=== PATIENT | female | born 1990 | race Caucasian/White ===

== ENCOUNTER 2016-06-10 20:51 | Emergency (ER) | payer OTHER ==
[~2016-06-10] VITALS: Ht 157.5 cm; Wt 54.5 kg
[2016-06-10 21:00] VITALS: Ht 157.5 cm; Wt 54.5 kg
[2016-06-10] MEDS ORDERED: HYDROmorphONE 1 MG/ML SYG IV STA (21:35)
[2016-06-10] MEDS ORDERED: SOD CHLORIDE 0.9% 1,000 ML IV STA (21:35)
[2016-06-10] MEDS ORDERED: ONDANSETRON 4 MG INJ IV STA (21:35)
[2016-06-10 22:29] LABS: ADD SCAN DIFF NO
[2016-06-10 22:35] LABS: BASOPHILS % 0.2 % (0.0-2.0); EOSINOPHILS % 0.3 % (0.0-7.0); HEMATOCRIT 33.1 % (37.0-47.0); HEMOGLOBIN 11.3 g/dl (12.0-16.0); LYMPHOCYTES # 1.3 10^3/ul (0.8-2.9); LYMPHOCYTES % 22.5 % (15.0-51.0); MEAN CORPUSCULAR HGB CONC 34.1 g/dl (32.0-37.0); MEAN CORPUSCULAR VOLUME 93.8 fl (82.0-101.0); MEAN PLATELET VOLUME 9.8 fl (7.4-10.4); MONOCYTE # 0.4 10^3/ul (0.3-0.9); NEUTROPHIL # 4.2 10^3/ul (1.6-7.5); NEUTROPHILS % 70.7 % (39.0-77.0); PLATELET COUNT 317 10^3/UL (140-415); RED BLOOD COUNT 3.53 10^6/ul (4.20-5.40); RED CELL DISTRIBUTION WIDTH 11.9 % (11.5-14.5)
--- NOTE | 2016-06-10 23:06 | RADRPT ---
PROCEDURE: US OB. CLINICAL INDICATION: Pain and vaginal bleeding TECHNIQUE: Transabdominal and transvaginal views of the pelvis are available for review. COMPARISON: There are no similar studies submitted for comparison. FINDINGS: There is no evidence of intrauterine gestational sac. The uterus and endometrium are normal in appe arance. The right ovary measures 4.8 x 3.6 x 3.8 cm. The left ovary measures 2.8 x 2.1 x 2.6 cm. Doppler f low is noted to the bilateral ovaries. A 2.3 cm corpus luteal cyst is noted within the right ovary. There is a small to moderate amount of free fluid within the pelvis. There is a 2.7 by 2.2 x 2.6 cm right adnexal mass. No definite vascular flow or cardiac activity is identified within the mass. IMPRESSION: Right adnexal mass and small to moderate pelvic free fluid suspicious for ectopic . Doppler flow to the bilateral ovaries. RPTAT: HIKT .Sadiq Varma MD, MD Date Time Electronically viewed and signed by .Sadiq Varma MD, MD on 06/10/2016 23:05 .T/
[2016-06-10] MEDS ORDERED: HYDR-902 PO (23:29)
[2016-06-10] MEDS ORDERED: CLIN-73 PO (23:29)
[2016-06-10] MEDS ORDERED: METH-70 PO (23:29)
--- NOTE | 2016-06-10 23:35 | ERD ---
ER Documentation Chief Complaint Date/Time DATE: 06/10/16 TIME: 23:30 Chief Complaint 4-6 WKS . KNOWN ECTOPIC . VAG BLEED/SEVERE PAIN HPI This 25-year-old female who is here for evaluation for diagnosis of ectopic , right molar pain, right thoracic pain. The patient was seen at [facility] on Saturday and was evaluated for 2 weeks of vaginal bleeding. The patient was discovered to be and had an ultrasound and was sent home. She was then called back by [facility] and was told to go to another hospital because she may have an ectopic . At that point the patient went to another hospital on Saturday and had an ultrasound and an hCG level of 800. The patient was discharged home and told that she might have an ectopic but then they called her back again and told her to return the next day which she did I am methotrexate. The patient states that she did not rest and move furniture yesterday and was busy with housework is complaining of some continued pelvic pain and vaginal bleeding which is not changed, and some upper thoracic pain that she has chronically due to her scoliosis. The patient is confuses whether she has an ectopic or not and wants to be checked for this. ROS All systems reviewed and are negative except as per history of present illness. Medications Home Meds Active Scripts Clindamycin Hcl* (Clindamycin Hcl*) 300 Mg Capsule, 300 MG PO TID for 7 Days, CAP Prov:SHAYNEOS,APOSTOLOS A. DO 06/10/16 Methocarbamol* (Robaxin*) 750 Mg Tablet, 750 MG PO TID, #30 TAB Prov:SHAYNEOSMADISONSTOLOS A. DO 06/10/16 Hydrocodone/Acetaminophen ([place] 10-325 Tablet) 1 Each Tablet, 1 TAB PO Q6H Y for PAIN, #20 TAB Prov:LESNEHAOS,APOSTOLOS A. DO 06/10/16 Allergies Allergies: Coded Allergies: No Known Allergy (Unverified , 06/10/16) FmHx Family History: No coronary disease Physical Exam Vitals Vital Signs Date Time Temp Pulse Resp B/P Pulse Ox O2 Delivery O2 Flow Rate FiO2 06/10/16 21:00 98.9 133 20 165/77 97 Physical Exam Const: Well-developed, well-nourished Head: Atraumatic, normocephalic Eyes: Normal Conjunctiva, PERRLA, EOMI, normal sclera, no nystagmus ENT: Normal External Ears, Nose and Mouth, moist mucus membranes, the right posterior lower molar has some gum swelling that is mild tenderness to palpation. Neck: Full range of motion. No meningismus, no lymphadenopathy. Resp: Clear to auscultation bilaterally, no wheezing, rhonchi, rales Cardio: Regular rate and rhythm, no murmurs, S1 S2 present Abd: Soft, mild diffuse pelvic tenderness non distended. Normal bowel sounds, no guarding or rebound, no pulsitile abdominal masses or bruits Skin: No petechiae or rashes, no ecchymosis , no maculopapular rash Back: No midline or flank tenderness, right upper thoracic muscle spasm with reproducible pain to palpation Ext: No cyanosis, or edema, FROM x 4, normal inspection, neurovascularly intact x 4 Neur: Awake and alert, STR 5/5 x 4, sensation intact x 4, no focal findings, cerebellum intact Psych: Normal Mood and Affect Result Diagram: 06/10/162151 Results 24 hrs Laboratory Tests Test 06/10/16 21:52 Basophils # 0.010^3/ul Basophils % 0.2% Beta HCG, Quantitative 650.3mIU/ml Eosinophils # 0.010^3/ul Eosinophils % 0.3% Hematocrit 33.1% Hemoglobin 11.3g/dl Lymphocytes # 1.310^3/ul Lymphocytes % 22.5% Mean Corpuscular Hemoglobin 32.0pg Mean Corpuscular Hemoglobin Concent 34.1g/dl Mean Corpuscular Volume 93.8fl Mean Platelet Volume 9.8fl Monocytes # 0.410^3/ul Monocytes % 6.0% Neutrophils # 4.210^3/ul Neutrophils % 70.7% Nucleated Red Blood Cells # 0.010^3/ul Nucleated Red Blood Cells % 0.0/100WBC Platelet Count 57408^3/UL Red Blood Count 3.5310^6/ul Red Cell Distribution Width 11.9% White Blood Count 6.010^3/ul Current Medications Medications (Trade) Dose Ordered Sig/Lars Route PRN Reason Start Time Stop Time Status Last Admin Dose Admin Sodium Chloride (NS) 1,000 ml @ 1,000 mls/hr Q1H STAT IV 3/12/17 21:35 06/10/16 22:34 DC 06/10/16 21:44 Hydromorphone HCl (Dilaudid) 1 mg ONCE STAT IV 06/10/16 21:35 06/10/16 21:36 DC 06/10/16 21:44 Ondansetron HCl (Zofran Inj) 4 mg ONCE STAT IV 06/10/16 21:35 06/10/16 21:36 DC 06/10/16 21:44 Procedures/MDM PROCEDURE: US OB. CLINICAL INDICATION: Pain and vaginal bleeding TECHNIQUE: Transabdominal and transvaginal views of the pelvis are available for review. COMPARISON: There are no similar studies submitted for comparison. FINDINGS: There is no evidence of intrauterine gestational sac. The uterus and endometrium are normal in appearance. The right ovary measures 4.8 x 3.6 x 3.8 cm. The left ovary measures 2.8 x 2.1 x 2.6 cm. Doppler flow is noted to the bilateral ovaries. A 2.3 cm corpus luteal cyst is noted within the right ovary. There is a small to moderate amount of free fluid within the pelvis. There is a 2.7 by 2.2 x 2.6 cm right adnexal mass. No definite vascular flow or cardiac activity is identified within the mass. IMPRESSION: Right adnexal mass and small to moderate pelvic free fluid suspicious for ectopic . Doppler flow to the bilateral ovaries. RPTAT: HIKT .Sadiq Varma MD, Date Time Electronically viewed and signed by .Sadiq Varma MD, on 06/10/2016 23:05 .T/ CC: HARESH HERNANDEZ DO HCG is 650 which is lower than the 800 a few days ago. The ectopic is still present because she had methotrexate a few days ago and has not had time to fully work. I told her see her OB GEN in a few days for follow-up. She does have some musculoskeletal pain in the back which is chronic. We will cover her with antibiotics for her mouth. Departure Diagnosis: Primary Impression: Ectopic Location of ectopic : tubal Intrauterine status: without intrauterine Qualified Code: O00.10 - Tubal without intrauterine Additional Impressions: Back pain Back pain location: thoracic back pain Chronicity: chronic Back pain laterality: right Qualified Code: M54.6 - Chronic right-sided thoracic back pain Tooth pain Condition: Stable Patient Instructions: Ectopic , Back Pain (Acute Or Chronic), Dental Pain HARESH HERNANDEZ DO Jun 10, 2016 23:34
[2016-06-11 00:10] VITALS: BP 111/76; PULSE 89; RESP 17; TEMP 98
== END 2016-06-11 00:10 | disposition home or self-care (01) ==
LOC: E/R 20:51
DX: O00.10 Tubal pregnancy without intrauterine pregnancy (principal); O99.89 Other specified diseases and conditions complicating pregnancy, childbirth and the puerperium; M54.6 Pain in thoracic spine; K08.89 Other specified disorders of teeth and supporting structures; O99.611 Diseases of the digestive system complicating pregnancy, first trimester; R10.2 Pelvic and perineal pain; Z3A.01 Less than 8 weeks gestation of pregnancy
CPT/HCPCS: 36415; 76801; 76817; 84702; 85025; 86900; 86901; 96374; 96375; J1170; J2405; J7030; Z7502

== ENCOUNTER 2016-12-08 21:19 | Emergency (ER) | payer OTHER ==
[~2016-12-08] VITALS: Ht 157.5 cm; Wt 57.0 kg
[~2016-12-08 21:19] MED LIST: CLIN-73 PO; HYDR-902 PO; METH750T93 PO
[2016-12-08 21:23] VITALS: Ht 157.5 cm; Wt 57.0 kg
--- NOTE | 2016-12-08 22:15 | ERD ---
ER Documentation Chief Complaint Date/Time DATE: 12/08/16 TIME: 22:13 Chief Complaint Vaginal bleed and pelvic pain today Possibly LMP 10/17/16 HPI ectopic pregancy in May, LMP October 17. pt reports 2 days of spotting, and pelvic cramping, denies dysuria ROS All systems reviewed and are negative except as per history of present illness. Medications Home Meds Active Scripts Clindamycin Hcl* (Clindamycin Hcl*) 300 Mg Capsule, 300 MG PO TID for 7 Days, CAP Prov:LEKKOS,APOSTOLOS A. DO 06/10/16 Methocarbamol* (Robaxin*) 750 Mg Tablet, 750 MG PO TID, #30 TAB Prov:LEKKOS,APOSTOLOS A. DO 06/10/16 Hydrocodone/Acetaminophen ([place] 10-325 Tablet) 1 Each Tablet, 1 TAB PO Q6H Y for PAIN, #20 TAB Prov:LEKKOS,APOSTOLOS A. DO 06/10/16 Allergies Allergies: Coded Allergies: No Known Allergy (Unverified , 06/10/16) PMhx/Soc History of Surgery: No Anesthesia Reaction: No Hx Neurological Disorder: No Hx Respiratory Disorders: No Hx Cardiac Disorders: No Hx Psychiatric Problems: No Hx Miscellaneous Medical Probl: Yes (ectopic 05/2016, scoliosis) Hx Alcohol Use: Yes (occasional) Hx Substance Use: Yes (meth use in past) Hx Tobacco Use: No Smoking Status: Never smoker Physical Exam Vitals Vital Signs Date Time Temp Pulse Resp B/P Pulse Ox O2 Delivery O2 Flow Rate FiO2 12/08/16 21:23 99.2 99 20 130/90 100 Physical Exam Const: Well-nourished well-hydrated well-appearing no acute distress Head: Atraumatic Eyes: Normal Conjunctiva ENT: Normal External Ears, Nose and Mouth. Neck: Full range of motion..~ No meningismus. Resp: Clear to auscultation bilaterally Cardio: Regular rate and rhythm, no murmurs Abd: Soft, non tender, non distended. Normal bowel sounds Skin: No petechiae or rashes Back: No midline or flank tenderness Ext: No cyanosis, or edema Neur: Awake and alert Psych: Normal Mood and Affect Results 24 hrs Laboratory Tests Test 12/08/16 22:38 Bedside Urine pH (LAB) 6.0 Bedside Urine Protein (LAB) Negative Bedside Urine Glucose (UA) Negative Bedside Urine Ketones (LAB) 2+ Bedside Urine Blood 3+ Bedside Urine Nitrite (LAB) Negative Bedside Urine Leukocyte Esterase (L Negative Current Medications Medications (Trade) Dose Ordered Sig/Lars Route PRN Reason Start Time Stop Time Status Last Admin Dose Admin Acetaminophen (Tylenol Tab) 650 mg ONCE ONCE PO 12/08/16 22:30 12/08/16 22:31 DC 12/08/16 22:23 Procedures/MDM This 26-year-old female presents to emergency department for evaluation of vaginal spotting. Patient reports that she has history of ectopic in May and has had a regular menstruation since. Her last menstrual period was October 17. 1 ectopic, one miscarriage in 2 terminated pregnancies. Patient is here today to be evaluated for . Urine test negative for evidence of . Patient will be discharged home, use Tylenol and Motrin for any back pain abdominal pain, follow-up with gynecology. Patient is stable with no new complaints during ER course, clinically there is no current evidence to suggest ectopic , molar , ovarian torsion or any other emergent condition appearing to require further evaluation or hospitalization. I feel the patient is stable for discharge at this time. I have discussed results, examination findings, the treatment plan with the patient and family present prior to discharge. Indications for emergent reevaluation, side effects of medication were also discussed. All questions were answered. Patient verbalizes understanding and agrees with plan of care. Departure Diagnosis: Primary Impression: Spotting Additional Impression: Vaginal bleeding Condition: Good Referrals: CLINICAL DIETICIAN REFERRAL LIST Additional Instructions: Thank you for for coming to the [facility] for your care today. Please ask your nurse or provider if you have questions about your care today and do not leave until all your questions have been answered. Please use any medications given as directed and follow-up with your doctor (or the doctor you were referred to) in the next 2-3 days. If you do not have a primary care doctor you may [place] [facility] [place] You may also use motrin and tylenol as needed for fever and/or pain unless instructed otherwise by your provider or nurse. Indications for more urgent follow-up have been discussed, but you may return to the Emergency Department at ANY time for any worrisome or worsening symptoms. If you have abdominal pain, please know that no test or exam you received is perfect and you should follow up within 8 hours for continued pain. If you had any imaging studies today, such as an X-Ray or CT Scan, these studies will be reviewed later by a radiologist. You will be called if there are important findings that were not identified today, so make sure the contact information you provided at registration is correct. If you received any narcotic pain control medicine today, such as Vicodin, Morphine or Dilaudid, your coordination and judgment may be affected for a number of hours. Please do not drive or operate heavy machinery, and you may want someone to assist you at home. If you were given a prescription for narcotic medication, be aware that it is very addictive- use sparingly and only if necessary. QUANG MELISSA Dec 08, 2016 22:15
[2016-12-08] MEDS ORDERED: ACETAMINOPHEN 325 MG TAB PO ONE (22:30)
[2016-12-08 22:32] LABS: URINE BLOOD (Dip) POC 3+ (NEGATIVE)
[2016-12-08 23:42] VITALS: BP 124/73; PULSE 98; RESP 16; TEMP 97.9
== END 2016-12-08 23:43 | disposition home or self-care (01) ==
LOC: FTE 21:19
DX: N93.9 Abnormal uterine and vaginal bleeding, unspecified (principal)
CPT/HCPCS: 81003; Z7502; Z7610; 99282